=== PATIENT | female | born 1985 | race Two or more races ===

== ENCOUNTER 2023-09-28 22:19 | Emergency (ER) | payer SELFPAY ==
[~2023-09-28] VITALS: Ht 167.6 cm; Wt 80.0 kg
[2023-09-28 22:24] VITALS: PULSE 70; RESP 26; O2SAT 99
[2023-09-28] MEDS: LORazepam 2MG/ML-1ML VIAL IV ONE (22:35)
[2023-09-28 23:43] LABS: Eosinophils % (auto) 0.2 % (0.0-7.0); Hematocrit 34.6 % (36.0-46.0); Hemoglobin 10.8 g/dL (12.2-16.2); Lymphocytes # (auto) 4.2 10 ^3/uL (0.4-5.4); Monocytes # (auto) 1.5 10 ^3/uL (0-1.3)
[2023-09-28 23:45] LABS: Basophils # (auto) 0.1 10 ^3/uL (0-0.2); Basophils % (auto) 0.6 % (0.0-2.0); Eosinophils # (auto) 0 10 ^3/uL (0-0.8); Lymphocytes % (auto) 17.8 % (10.0-50.0); Mean Corpuscular Hemoglobin 25.3 pg (28.0-32.0); Mean Corpuscular Hgb Conc. 31.3 g/dL (32.0-36.0); Mean Corpuscular Volume 80.9 fL (80.0-100.0); Monocytes % (auto) 6.3 % (0.0-12.0); Neutrophils # (auto) 17.6 10 ^3/uL (1.6-8.6); Neutrophils % (auto) 75.1 % (37.0-80.0); Nucleated Red Blood Cells % 0.1 %; Red Blood Cells 4.28 10^6/uL (4.0-5.20); Red Cell Distribution Width 16.3 % (11.8-14.3); White Blood Cell 23.4 10^3/uL (4.4-10.8)
[2023-09-28 23:57] LABS: INR 1.09 (0.9-1.15); Partial Thromboplastin Time 20.6 SEC (24.5-34.5); Prothrombin Time 11.4 sec (9.3-11.8)
[2023-09-28 23:59] LABS: Alanine Aminotransferase 66 U/L (7-40); Albumin 3.9 g/dL (3.2-4.8); Alkaline Phosphatase 84 U/L (46-116); Anion Gap 13 (5-15); Aspartate Aminotransferase 58 U/L (13-40); BUN/Creatinine Ratio 11.2 (10.0-20.0); Bilirubin, Total 0.3 mg/dL (0.2-1.0); Blood Alcohol < 3.0 mg/dL (<10); Blood Urea Nitrogen 10 mg/dL (9-23); Calcium 8.3 mg/dL (8.5-10.1); Carbon Dioxide 18 mmol/L (20-30); Chloride 107 mmol/L (98-107); Glucose 215 mg/dL (74-106); Potassium 2.7 mmol/L (3.5-5.1); Sodium 138 mmol/L (136-145); Total Protein 6.6 g/dL (5.7-8.2)
[2023-09-29] MEDS: ONDANSETRON HCL 4 MG/2 ML VIAL IV ONE (00:03)
[2023-09-29] MEDS: LORazepam 2MG/ML-1ML VIAL IV ONE (00:04)
[2023-09-29] MEDS: MORPHINE SULFATE 4 MG/ML SYR/VIAL IV ONE (00:04)
[2023-09-29 00:12] LABS: Amphetamine Screen, Urine Neg (NEGATIVE)
[2023-09-29 00:13] LABS: Barbiturate Scree,Urine Neg (NEGATIVE); Benzodiazephine Screen, Urine Neg (NEGATIVE); Cannabinoid Screen, Urine Pos (NEGATIVE); Cocaine Screen, Urine Neg (NEGATIVE); Opiate Scree,Urine Neg (NEGATIVE); Phencyclidine Screen, Urine Neg (NEGATIVE); Urine Bacteria FEW /hpf (None Seen); Urine Blood 1+ /uL (Negative); Urine Clarity Clear (Clear); Urine Color Colorless (Yellow); Urine Protein, UAD Negative (Negative); Urine Specific Gravity 1.009 (1.001-1.035); Urine Urobilinogen Normal (Negative); Urine WBC 3 /hpf (0 - 5)
[2023-09-29] MEDS: HYDROmorphone HCL 2 MG/ML VL/or syr IV ONE (02:01)
[2023-09-29] MEDS: POTASSIUM CHL 20MEQ/100ML 100 ML IV ONE (02:58)
[2023-09-29] MEDS: levETIRAcetam 1000 mg/100ml 100 ML IV ONE (06:09)
[2023-09-29 06:19] VITALS: BP 132/82; PULSE 76; RESP 22; TEMP 99.2; O2SAT 96
== END 2023-09-29 06:44 | disposition short-term general hospital (02) ==
LOC: ER 22:19 → EDBD 22:19 → ER 09-29 06:44
DX: I61.0 Nontraumatic intracerebral hemorrhage in hemisphere, subcortical (principal); R07.89 Other chest pain
CPT/HCPCS: 36415; 70450; 71045; 80053; 80307; 80320; 81001; 81025; 83880; 84484; 85025; 85610; 85730; 93005; 96365; 96366; 96367; 96375; 96376; 99291; J1170; J1953; J2060; J2270; J2405; J3480; 51702